=== PATIENT | female | born 1965 | race African-American/Black ===

== ENCOUNTER 2017-09-03 11:47 | Emergency (ER) | payer MEDICARE, MEDICAID ==
[~2017-09-03] VITALS: Ht 162.6 cm; Wt 60.0 kg
[2017-09-03] MEDS ORDERED: METF500T4 PO (11:57)
[2017-09-03 14:11] LABS: KETONES URINE NEGATIVE (NEGATIVE); LEUKOCYTE ESTERASE URINE 1+ (NEGATIVE); NITRITE URINE NEGATIVE (NEGATIVE); OCCULT BLOOD URINE 3+ (NEGATIVE); PROTEIN URINE 3+ (NEGATIVE); SPECIFIC GRAVITY URINE 1.027 (1.005-1.030)
[2017-09-03 14:12] LABS: CLARITY URINE CLOUDY (CLEAR); COLOR URINE BLOODY (YELLOW)
[2017-09-03] MEDS ORDERED: ONDANSETRON 4MG ODT PO STA (14:30)
[2017-09-03] MEDS ORDERED: KETOROLAC 60MG/2ML VIAL IM STA (14:30)
[2017-09-03 15:19] LABS: BASOPHILS % 0.6 % (0.0-2.0); EOSINOPHILS % 0.1 % (0.0-5.0); HEMOGLOBIN. 7.4 g/dL (12.0-16.0); LYMPHOCYTES % 21.7 % (20.0-50.0); MEAN CORPUSCULAR HEMOGLOBIN 20.3 pg (28.0-32.0); MEAN CORPUSCULAR VOLUME 66.1 fL (81.0-99.0); MEAN PLATELET VOLUME 7.3 fl (7.4-10.4); NEUTROPHILS % 73.6 % (40.0-76.0); PLATELET 385 x1000/uL (130-400); RED BLOOD CELL COUNT 3.64 mill/uL (4.2-5.4); RED CELL DISTRIBUTION WIDTH 18.5 % (11.6-14.6)
[2017-09-03 15:22] LABS: CHLORIDE 105 mEq/L (98-107)
[2017-09-03 16:24] LABS: PLATELET ESTIMATE NORMAL
[2017-09-03 17:25] VITALS: BP 128/78
== END 2017-09-03 17:36 | disposition home or self-care (01) ==
LOC: ER 12:16
DX: N39.0 Urinary tract infection, site not specified (principal); E11.9 Type 2 diabetes mellitus without complications; D50.9 Iron deficiency anemia, unspecified
CPT/HCPCS: 36415; 76830; 76856; 80053; 81003; 81025; 83690; 85025; 96372; 99285; J1885; Q0162

== ENCOUNTER 2019-05-30 10:19 | Emergency (ER) | payer OTHER, MEDICARE, MEDICAID ==
[~2019-05-30] VITALS: Ht 154.9 cm; Wt 75.0 kg
[~2019-05-30 10:19] MED LIST: METF-414 PO
[2019-05-30] MEDS ORDERED: BACITRACIN ZINC OINT UDPKT TOP ONE (11:15)
[2019-05-30] MEDS ORDERED: IBUPROFEN 600MG TABLET PO ONE (11:15)
[2019-05-30 13:22] VITALS: BP 132/66
== END 2019-05-30 13:24 | disposition home or self-care (01) ==
LOC: ER 10:19
DX: S61.309A Unspecified open wound of unspecified finger with damage to nail, initial encounter (principal); M25.562 Pain in left knee; H57.13 Ocular pain, bilateral; E11.9 Type 2 diabetes mellitus without complications; Z02.89 Encounter for other administrative examinations; Z98.890 Other specified postprocedural states; Z77.098 Contact with and (suspected) exposure to other hazardous, chiefly nonmedicinal, chemicals; Y04.0XXA Assault by unarmed brawl or fight, initial encounter; Y93.89 Activity, other specified; Y92.89 Other specified places as the place of occurrence of the external cause
CPT/HCPCS: 73562; 99283; A4217